=== PATIENT | female | born 1955 | race Caucasian/White ===

== ENCOUNTER → 2023-09-29 19:05 | Outpatient (REF) | payer OTHER, SELFPAY | LOC: WDC 19:05 | PROVIDERS: ATTENDING PHYSICIAN Obstetrics & Gynecology; FAMILY PHYSICIAN Family Medicine | DX: Z12.31 Encounter for screening mammogram for malignant neoplasm of breast (principal) | CPT/HCPCS: 77063; 77067 ==

== ENCOUNTER 2024-04-07 06:15 | Day surgery (SDC) | payer OTHER, SELFPAY | END 2024-04-07 15:17 | disposition home or self-care (01) | LOC: GI 06:15 | PROVIDERS: ATTENDING PHYSICIAN Specialist | DX: Z12.11 Encounter for screening for malignant neoplasm of colon (principal); K57.30 Diverticulosis of large intestine without perforation or abscess without bleeding; K31.7 Polyp of stomach and duodenum; R43.9 Unspecified disturbances of smell and taste; Z86.0101 Personal history of adenomatous and serrated colon polyps | CPT/HCPCS: 43239; G0105; 88305 ==

== ENCOUNTER → 2024-12-01 16:34 | Outpatient (REF) | payer OTHER, SELFPAY | LOC: RAD 16:34 | PROVIDERS: ATTENDING PHYSICIAN Family Medicine | DX: E78.49 Other hyperlipidemia (principal) | CPT/HCPCS: 75571 ==